=== PATIENT | female | born 1965 | race Caucasian/White ===

== ENCOUNTER 2023-12-18 10:24 | Outpatient (AMB) | payer BC, SELFPAY ==
--- NOTE | 2023-12-18 10:30 | A.OFFVIS_ITS ---
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 The patient is a 58 year woman known obstructive sleep apnea. She has had a frozen sleep apnea for about 20 years. She is going to CPAP for that long. The CPAP therapy has been affecting beneficial. She has been using nasal pillows. She does keep her mouth closed and she does respond well to the therapy. When she does not use her CPAP for what reason she wakes up short of breath because of the apneic episodes. She is working closely with the [employer] company, [employer]. She has had the machine for mouth more than 5 years. She has not looking to replace the machine because she does want have to do with copious at this time. I think that is reasonable. Specially the machines working for her. The patient however has not been able to get any supplies. She has been calling the [employer] company has not been able to get any answers. Most likely need a prescription and we will send 1 today. I also did request the [employer] reach out to the patient for an update as far as where she is at with her supplies. The patient will watch him her m achine. If she gets any warning that the machine is not working appropriately she will call and she may need to get a replacement machine. Otherwise the patient is without any other complaints. [facility] Medical History (Updated 12/18/23 @ 22:25 by Kris Hart MD) DAYAN on CPAP Social History (Updated 12/18/23 @ 10:37 by EDYTA Segura) Patient Tobacco Use Status: Never used Tobacco Review of Systems Const Denies difficulty sleeping and Denies snoring Eyes Reports no additional complaints ENT Denies nasal congestion Card Denies chest pain and Denies palpitations Resp Denies cough, Denies snoring and Denies wheezing GI Reports no additional complaints Musc Reports no additional complaints Skin/Breast Denies rash Endo Denies palpitations Aller/Immun Denies wheezing Physical Exam Vital Signs: Last Vital Signs Pulse 60 12/18/23 10:32 BP 124/70 12/18/23 10:32 Pulse Ox 97 12/18/23 10:32 Oxygen Delivery Method Room Air 12/18/23 10:32 BMI result Body Mass Index 37.7 Const General: comfortable HEENT Head: Yes normocephalic Neck Neck: Yes supple Chest Chest palpation & inspection: normal inspection of the chest Resp Effort & Inspection: normal respiratory effort Auscultation: clear to auscultation bilaterally Cardio Heart sounds: S1 normal heart sound present and S2 normal heart sound present GI Palpation (GI): Soft to palpation Skin General skin exam: no rashes or lesions noted Extrem General: Yes no clubbing, cyanosis or edema Assessment & Plan Assessment & Plan (1) DAYAN on CPAP: Code(s): G47.33 - Obstructive sleep apnea (adult) (pediatric) Category: Medical Plan Continue APAP, needs to get supplies from her DME, JL May need to have a replacemnt APAP if the current APAP start malfuctioning F/U 1 year Coding Level of Care Code Est Pt Level 3 (83696) Diagnoses DAYAN on CPAP G47.33 Time Spent (min) 16
[2023-12-18 10:32] VITALS: BP 124/70; PULSE 60; O2SAT 97; BMI 37.7
== END 2023-12-18 10:54 | disposition home or self-care (01) ==
PROVIDERS: PCP Internal Medicine; Referring Provider Internal Medicine; Visit Provider Hospitalist
DX: G47.33 Obstructive sleep apnea (adult) (pediatric) (principal)
CPT/HCPCS: 99213

== ENCOUNTER → 2023-12-18 10:24 | Outpatient (BNVA) | payer BC, SELFPAY | PROVIDERS: PCP Internal Medicine; Visit Provider Hospitalist ==

== ENCOUNTER 2025-01-18 15:21 | Outpatient (AMB) | payer BC, SELFPAY ==
[2025-01-18 15:23] VITALS: BP 130/72; PULSE 82; O2SAT 96; BMI 42.1
--- NOTE | 2025-01-18 15:23 | A.OFFVIS_ITS ---
Vital Signs 01/18/25 15:23 Height 5 ft 2.5 in Weight 233 lb 11.04 oz BMI 42.1 BP 130/72 Blood Pressure Location Lt brachial Position Sitting Pulse 82 Pulse Source Pulse Oximeter Pulse Oximetry (%) 96 Oxygen Delivery Method Room Air Intake Visit Reasons: Cough Teletype Technician Required: No Accompanied by: Self / Same As Patient Allergies No Known Allergies (No Known Allergies*) Allergy (Verified 01/18/25 15:27) HPI Comments Details: 12/18/2023 the patient is here for a pulmonary follow-up visit. The patient is a 58 year woman known obstructive sleep apnea. She has had a frozen sleep apnea for about 20 years. She is going to CPAP for that long. The CPAP therapy has b een affecting beneficial. She has been using nasal pillows. She does keep her mouth closed and she does respond well to the therapy. When she does not use her CPAP for what reason she wakes up short of breath because of the apneic episodes. She is working closely with the [email or web address] company, [employer]. She has had the machine for mouth more than 5 years. She has not looking to replace the machine because she does want have to do with copious at this time. I think that is reasonable. Specially the machines working for her. The patient however has not been able to get any supplies. She has been calling the [email or web address] company has not been able to get any answers. Most likely need a prescription and we will send 1 today. I also did request the [employer] reach out to the patient for an update as far as where she is at with her supplies. The patient will watch him her machine. If she gets any warning that the machine is not working appropriately she will call and she may need to get a replacement machine. Otherwise the patient is without any other complaints. 01/18/2025 the patient is here for pulmonary follow-up visit. Overall she is doing very well. She continues uses CPAP every night. CPAP therapy has been affecting beneficial. She does use a nasal pillows. She did bring her machine and we did download the machine. His AHI is down to 0.5. Average pressure is 14.9. Current settings are 10-18. I did increase her lower setting to 12 cm since she is having some issues with the machine not being too strong initially. The patient otherwise is without any complaints. She is thinking about switching over to a fullface mask. But right now she is doing well with the nasal pillows and then will continue that for now. If she does change her mind she can always call me and I can send a script out to her DME company for fullface mask. Maybe an F40. The patient denies any other respiratory complaints. Will follow-up in a year's time. [facility] Medical History (Updated 12/18/23 @ 22:25 by Kris Hart MD) DAYAN on CPAP Social History Patient Tobacco Use Status: Never used Tobacco Review of Systems Const Denies difficulty sleeping and Denies snoring Eyes Reports no additional complaints ENT Denies nasal congestion Card Denies chest pain and Denies palpitations Resp Denies cough, Denies snoring and Denies wheezing GI Reports no additional complaints Musc Reports no additional complaints Skin/Breast Denies rash Endo Denies palpitations Aller/Immun Denies wheezing Physical Exam Vital Signs: Last Vital Signs Pulse 82 01/18/25 15:23 BP 130/72 01/18/25 15:23 Pulse Ox 96 01/18/25 15:23 Oxygen Delivery Method Room Air 01/18/25 15:23 BMI result Body Mass Index 42.1 Const General: comfortable HEENT Head: Yes normocephalic Neck Neck: Yes supple Chest Chest palpation & inspection: normal inspection of the chest Resp Effort & Inspection: normal respiratory effort Auscultation: clear to auscultation bilaterally Cardio Heart sounds: S1 normal heart sound present and S2 normal heart sound present GI Palpation (GI): Soft to palpation Skin General skin exam: no rashes or lesions noted Extrem General: Yes no clubbing, cyanosis or edema Assessment & Plan Assessment & Plan (1) DAYAN on CPAP: Code(s): G47.33 - Obstructive sleep apnea (adult) (pediatric) Category: Medical Plan Continue APAP, needs to get supplies from her DME, JL p10 mask F/U 1 year Coding Level of Care Code Est Pt Level 3 (46642) Diagnoses DAYAN on CPAP G47.33 Time Spent (min) 15
--- OUTSIDE RECORDS SUMMARY | 2025-01-18 15:38 | XMS_ITS | Data Portability ---
Author Organization [facility], Main Office Address [address] [facility] [address] [place] [id number] Care Team Providers Care Campus Coordinator Name Role Phone DAVID BRIONES Director Product BAUTISTA HARDY Insurance Compliance Analyst YAZ ARCHER Orthopedic Surgeon YARITZA LOUIS Centrifugal Drier Operator BRISEYDA MAYBERRY Primary Care Provider YASMEEN PARRA Carding Machine Feeder Assessment No assessment recorded. Plan of Treatment Reminders Order Date Submit Date Provider Last Modified By Organization Details Last Modified Time Details Appointments PE EST 2024 08:15A M BRISEYDA MAYBERRY MD Not available Not available Not available Lab lipid panel, serum 2023 024 [email or web address] [facility], [address] [place], [address], 06/08/2024 12:57:40 BMP, serum or plasma 2023 024 ARELIS [facility], [address], [place], [address], 09/10/2024 06:08:07 CBC w/ auto diff 2023 024 ARELIS [facility], [address], [place], [address], 09/10/2024 06:08:06 TSH, ultra- sensit jason, serum 2023 024 [email or web address] [facility], [address], [place], [address], 06/08/2024 12:57:41 lipid panel, serum 2022 023 ARELIS [facility], [address], [place] [address], [place], [address], 11/06/2022 19:07:38 CBC w/ auto diff 2022 023 ARELIS [facility], [address], [place] [address], [place], [address], 11/06/2022 15:08:26 CMP, serum or plasma 2022 023 ARELIS [facility], [address] [place] [address], [place], [address], 11/06/2022 19:07:37 Referral hand surgeo n referr al - for remova l or draina ge of cyst in the left hand 2023 024 [email or web address] [facility] , [address], [address], [place], [address], 09/08/2024 09:13:39 otolar yngolo gist referr al - vertig o and concer n of emily chew loss evalua te 2021 022 [email or web address] [facility], [address], [address], [place], [address], 12/20/2022 15:02:56 gastro entero logist referr al - Needs colon cancer screen ing 2021 022 Yasmeen Parra MD ([facility]), [address], [address] [address], [place], [address], 07/19/2022 12:16:07 audiol ogist referr al - vertig o possib le hearin g loss 2021 [email or web address] Not available 12/26/2022 15:04:00 hand surgeo n referr al - left hand trigge r finger 2021 022 [email or web address] Yaz Archer MD, [facility], [place], [address], 07/11/2022 10:14:53 Procedures None record ed. Surgeries None record ed. Imaging None record ed. Medication Orders atenol ol 50 mg tablet 2023 024 [facility], [place], [address], 03/09/2024 15:25:58 valsar correia 80 mg tablet 2023 024 [facility], [place], [address], 03/09/2024 15:25:58 Patient TargetsNo targets recorded. Patient Instructions Encounter Date Encounter Id Patient Instructions Last Modified By Organization Details Last Modified Time 12/21/2021 [id number] allergies: care instructions [email or web address] Not available 12/21/2021 10:17:41 managing your allergies: care instructions [email or web address] Not available 12/21/2021 10:17:42 06/29/2022 [id number] learning about colon cancer [email or web address] Not available 06/29/2022 11:44:33 body mass index: care instructions [email or web address] Not available 06/29/2022 11:44:32 learning about healthy weight [email or web address] Not available 06/29/2022 11:44:32 10/11/2022 [id number] well visit, women 50 to 65: care instructions Not available 10/11/2022 10:50:53 03/09/2024 [id number] hearing loss: care instructions [email or web address] Not available 03/11/2024 12:25:42 learning about basal cell skin cancer Not available 03/09/2024 15:25:58 sleep apnea: care instructions Not available 03/09/2024 15:25:58 starting a weight loss plan: care instructions Not available 03/09/2024 18:34:07 Nutrition Referral and Weight Management Follow-up Information Not available 03/09/2024 18:34:07 Reason for Referral Hand Surgeon Referral for Tr igger finger of left hand left hand trigger finger Referring Physician: Carolyne Landa [facility], Encounter Date: 12/21/2021 Carding Machine Feeder Referral for Screening for malignant neoplasm of colon Needs colon cancer screening Referring Physician: Carolyne Landa [facility], Encounter Date: 06/29/2022 Pain Management Physician Referral fo r Vertigo vertigo and concern of hearing loss evaluate Referring Physician: Carolyne Landa [facility], Encounter Date: 06/29/2022 Recreational Assistant Referral for Hea ring difficulty vertigo possible hearing loss Referring Physician: Carolyne Landa [facility], Encounter Date: 06/29/2022 Hand Surgeon Referral for Ga nglion cyst of left hand for removal or drainage of cyst in the left hand Referring Physician: Briseyda Mayberry [facility], Encounter Date: 03/09/2024 Results Created Date Observation Date Name Description Value Unit Range Abnormal Flag Note LastModifiedBy Organization Detail LastModifiedTime 11/07/1911/06/2022 BASIC METAB OLIC PANEL results Jorge becki order cance lled via inter face Not Available [facility] (Centralized Electronic Ordering - All Locations) Patient Can Go To The Location Of Their Choice, [id number] 11/06/2022 09:37:01 11/07/1911/06/2022 COMPL ETE CBC WITH DIFF WBC 6.8 K/mm3 (4.0-1 1.0) Not Available [facility] (Centralized Electronic Ordering - All Locations) Patient Can Go To The Location Of Their Choice, [id number] 11/06/2022 15:08:11/07/1911/06/2022 COMPL ETE CBC WITH DIFF RBC 4.50 M/mm3 (4.20- 5.40) Not Available [facility] (Centralized Electronic Ordering - All Locations) Patient Can Go To The Location Of Their Choice, 11/06/2022 15:08:11/07/1911/06/2022 COMPL ETE CBC WITH DIFF HGB 14.4 gm/dL (11.7- 15.5) Not Available [facility] (Centralized Electronic Ordering - All Locations) Patient Can Go To The Location Of Their Choice, 11/06/2022 15:08:11/07/1911/06/2022 COMPL ETE CBC WITH DIFF HCT 42.7 % (35.7- 45.8) Not Available [facility] (Centralized Electronic Ordering - All Locations) Patient Can Go To The Location Of Their Choice, 11/06/2022 15:08:11/07/1911/06/2022 COMPL ETE CBC WITH DIFF MCV 94.9 fL (80.0- 100.0) Not Available [facility] (Centralized Electronic Ordering - All Locations) Patient Can Go To The Location Of Their Choice, 11/06/2022 15:08:11/07/1911/06/2022 COMPL ETE CBC WITH DIFF MCH 32.0 pg (27.0- 34.0) Not Available [facility] (Centralized Electronic Ordering - All Locations) Patient Can Go To The Location Of Their Choice, 11/06/2022 15:08:11/07/1911/06/2022 COMPL ETE CBC WITH DIFF MCHC 33.7 g/dL (33.0- 37.0) Not Available [facility] (Centralized Electronic Ordering - All Locations) Patient Can Go To The Location Of Their Choice, 11/06/2022 15:08:11/07/1911/06/2022 COMPL ETE CBC WITH DIFF plt 227 K/mm3 (150-4 60) Not Available [facility] (Centralized Electronic Ordering - All Locations) Patient Can Go To The Location Of Their Choice, 11/06/2022 15:08:11/07/1911/06/2022 COMPL ETE CBC WITH DIFF RDW-SD 42.3 fL (<47.0 ) Not Available [facility] (Centralized Electronic Ordering - All Locations) Patient Can Go To The Location Of Their Choice, 11/06/2022 15:08:11/07/1911/06/2022 COMPL ETE CBC WITH DIFF MPV 9.9 fL (9.4-1 2.4) Not Available [facility] (Centralized Electronic Ordering - All Locations) Patient Can Go To The Location Of Their Choice, 11/06/2022 15:08:11/07/1911/06/2022 COMPL ETE CBC WITH DIFF automated NRBC 0.0 #/100 _WBC' s Not Available [facility] (Centralized Electronic Ordering - All Locations) Patient Can Go To The Location Of Their Choice, 11/06/2022 15:08:11/07/1911/06/2022 COMPL ETE CBC WITH DIFF abs. NRBC 0.0 K/mm3 Not Available [facility] (Centralized Electronic Ordering - All Locations) Patient Can Go To The Location Of Their Choice, 11/06/2022 15:08:11/07/1911/06/2022 COMPL ETE CBC WITH DIFF neut # 4.4 K/mm3 (1.3-7 .0) Not Available [facility] (Centralized Electronic Ordering - All Locations) Patient Can Go To The Location Of Their Choice, 11/06/2022 15:08:11/07/1911/06/2022 COMPL ETE CBC WITH DIFF lymph # 1.6 K/mm3 (0.8-3 .1) Not Available [facility] ([facility] Electronic Ordering - All Locations) Patient Can Go To The Location Of Their Choice, 11/06/2022 15:08:11/07/1911/06/2022 COMPL ETE CBC WITH DIFF mono# 0.5 K/mm3 (0.4-0 .9) Not Available [facility] ([facility] Ordering - All Locations) Patient Can Go To The Location Of Their Choice, 11/06/2022 15:08:11/07/1911/06/2022 COMPL ETE CBC WITH DIFF eo # 0.2 K/mm3 (0.0-0 .4) Not Available [facility] ([facility] Ordering - All Locations) Patient Can Go To The Location Of Their Choice, 11/06/2022 15:08:11/07/1911/06/2022 COMPL ETE CBC WITH DIFF baso # 0.0 K/mm3 (0.0-0 .1) Not Available [facility] ([facility] Ordering - All Locations) Patient Can Go To The Location Of Their Choice, 11/06/2022 15:08:11/07/1911/06/2022 COMPL ETE CBC WITH DIFF abs. imm gran 0.0 K/mm3 Not Available [facility] ([facility] Order[facility] - All Locations) Patient Can Go To The Location Of Their Choice, 11/06/2022 15:08:11/07/1911/06/2022 COMPL ETE CBC WITH DIFF neut 65.3 % (44-76 ) Not Available [facility] ([facility] Electronic Ordering - All Locations) Patient Can Go To The Location Of Their Choice, 11/06/2022 15:08:11/07/1911/06/2022 COMPL ETE CBC WITH DIFF lymph 23.9 % (15-43 ) Not Available [facility] (Central[facility] Electronic Ordering - All Locations) Patient Can Go To The Location Of Their Choice, 11/06/2022 15:08:11/07/1911/06/2022 COMPL ETE CBC WITH DIFF monocyte 7.3 % (4.5-1 0.5) Not Available [facility] ([facility]ized [facility] Ordering - All Locations) Patient Can Go To The Location Of Their Choice, 11/06/2022 15:08:11/07/1911/06/2022 COMPL ETE CBC WITH DIFF eo 2.3 % (0-6) Not Available [facility] ([facility] Ordering - All Locations) Patient Can Go To The Location Of Their Choice, 11/06/2022 15:08:11/07/1911/06/2022 COMPL ETE CBC WITH DIFF baso 0.6 % (0-2) Not Available [facility] ([facility] Ordering - All Locations) Patient Can Go To The Location Of Their Choice, 11/06/2022 15:08:11/07/1911/06/2022 COMPL ETE CBC WITH DIFF imm gran 0.6 % Not Available [facility] ([facility] Ordering - All Locations) Patient Can Go To The Location Of Their Choice, 11/06/2022 15:08:26 11/07/19 23 11/06/2022 COMPR EHENS JASON METAB OLIC PANL glucose 108 mg/dL (70-99 ) high Fasti ng Not Available [facility] ([facility] Ordering - All Locations) Patient Can Go To The Location Of Their Choice, 11/06/2022 19:07:37 11/07/19 23 11/06/2022 COMPR EHENS JASON METAB OLIC PANL BUN 10 mg/dL (6-20) Not Available [facility] ([facility] Ordering - All Locations) Patient Can Go To The Location Of Their Choice, 11/06/2022 19:07:37 11/07/1911/06/2022 COMPR EHENS JASON METAB OLIC PANL creatinine 0.8 mg/dL (0.5-1 .0) Not Available [facility] ([facility] Ordering - All Locations) Patient Can Go To The Location Of Their Choice, 11/06/2022 19:07:37 11/07/1911/06/2022 COMPR EHENS JASON METAB OLIC PANL sodium 144 mmol/ L (133-1 45) Not Available [facility] ([facility] Ordering - All Locations) Patient Can Go To The Location Of Their Choice, 11/06/2022 19:07:37 11/07/1911/06/2022 COMPR EHENS JASON METAB OLIC PANL potassium 5.1 mmol/ L (3.6-5 .2) Not Available [facility] ([facility] Ordering - All Locations) Patient Can Go To The Location Of Their Choice, 11/06/2022 19:07:37 11/07/1911/06/2022 COMPR EHENS JASON METAB OLIC PANL chloride 105 mmol/ L (98-10 7) Not Available [facility] ([facility] Ordering - All Locations) Patient Can Go To The Location Of Their Choice, 11/06/2022 19:07:37 11/07/19 23 11/06/2022 COMPR EHENS JASON METAB OLIC PANL bicarbonate 29 mmol/ L (22-29 ) Not Available [facility] ([facility] Ordering - All Locations) Patient Can Go To The Location Of Their Choice, 11/06/2022 19:07:37 11/07/1911/06/2022 COMPR EHENS JASON METAB OLIC PANL anion gap 10 (4-17) Not Available [facility] ([facility] Ordering - All Locations) Patient Can Go To The Location Of Their Choice, 11/06/2022 19:07:37 11/07/1911/06/2022 COMPR EHENS JASON METAB OLIC PANL albumin 4.8 gm/dL (3.4-4 .8) Not Available [facility] ([facility] Ordering - All Locations) Patient Can Go To The Location Of Their Choice, 11/06/2022 19:07:37 11/07/1911/06/2022 COMPR EHENS JASON METAB OLIC PANL calcium 10.0 mg/dL (8.6-1 0.5) Not Available [facility] ([facility] Ordering - All Locations) Patient Can Go To The Location Of Their Choice, 11/06/2022 19:07:37 11/07/1911/06/2022 COMPR EHENS JASON METAB OLIC PANL bilirubin,to chuck 0.4 mg/dL (0-1.2 ) Not Available [facility] ([facility] Ordering - All Locations) Patient Can Go To The Location Of Their Choice, 11/06/2022 19:07:37 11/07/1911/06/2022 COMPR EHENS JASON METAB OLIC PANL total protein 7.1 gm/dL (6.2-8 .2) Not Available [facility] ([facility] Ordering - All Locations) Patient Can Go To The Location Of Their Choice, 11/06/2022 19:07:37 11/07/1911/06/2022 COMPR EHENS JASON METAB OLIC PANL Ag ratio 2.1 Not Available [facility] ([facility] Ordering - All Locations) Patient Can Go To The Location Of Their Choice, 11/06/2022 19:07:37 11/07/1911/06/2022 COMPR EHENS JASON METAB OLIC PANL AST 15 U/L (0-32) Not Available [facility] ([facility] Ordering - All Locations) Patient Can Go To The Location Of Their Choice, 11/06/2022 19:07:37 11/07/1911/06/2022 COMPR EHENS JASON METAB OLIC PANL alk phos 62 U/L (35-10 4) Not Available [facility] ([facility] Ordering - All Locations) Patient Can Go To The Location Of Their Choice, 11/06/2022 19:07:37 11/07/1911/06/2022 COMPR EHENS JASON METAB OLIC PANL ALT 14 U/L (0-33) Not Available [facility] ([facility] Ordering - All Locations) Patient Can Go To The Location Of Their Choice, 11/06/2022 19:07:37 11/07/1911/06/2022 COMPR EHENS JASON METAB OLIC PANL estimated GFR creatinine 87 mL/mi n/1.7 3_M2 Creat inine based estim ated glome rular filtr ation (eGFR ) in adult s is calcu lated using the Natio nal Kidne y Found ation recom yuan d 2020 CKD-E PI equat ion. Estim ates GFR from serum creat inine , age and sex. Not Available [facility] ([facility] Ordering - All Locations) Patient Can Go To The Location Of Their Choice, 11/06/2022 19:07:37 11/07/1911/06/2022 LIPID PANEL cholesterol, total 228 mg/dL (<200) high Not Available [facility] ([facility] Order[facility] - All Locations) Patient Can Go To The Location Of Their Choice, 11/06/2022 19:07:38 11/07/1911/06/2022 LIPID PANEL triglyceride 135 mg/dL (<150) Fasti ng Not Available [facility] ([facility] Ordering - All Locations) Patient Can Go To The Location Of Their Choice, 11/06/2022 19:07:38 11/07/1911/06/2022 LIPID PANEL HDL chol 65 mg/dL (>39) Not Available [facility] ([facility] Ordering - All Locations) Patient Can Go To The Location Of Their Choice, 11/06/2022 19:07:38 11/07/19 23 11/06/2022 LIPID PANEL LDL cholesterol, calculated 136 mg/dL (0-130 ) high Not Available [facility] ([facility] Ordering - All Locations) Patient Can Go To The Location Of Their Choice, 11/06/2022 19:07:38 11/07/19 23 11/06/2022 LIPID PANEL non HDL cholesterol (calc) 163 mg/dL (<160) high Not Available [facility] ([facility] Order[facility] - All Locations) Patient Can Go To The Location Of Their Choice, 11/06/2022 19:07:38 11/07/19 23 11/07/2022 HEMOG LOBIN A1C hemoglobin A1C 5.7 % (4.0-5 .6) high MONIT ORING : In known diabe tic patie nts, hemog lobin A1c targe ts shoul d be discu ssed with healt h care provi daniel. DIAGN OSTIC USE: The Ameri can Diabe m[place] Assoc iatio n (ADA) and the World [facility]oples Hospital[facility] Organ izati on (WHO) recom mend the use of HbA1c to diagn ose diabe mendoza using a thres hold of 6.5%. Patie nts who have an HbA1c betwe en 5.7% and 6.4% are consi dered at incre ased risk for devel oping diabe mendoza in the futur e. CAUTI ON: False ly low HbA1c resul ts may be obser ashlee in patie nts with hemol ytic anemi a, homoz ygous forms of abnor mal hemog lobin (e.g. SS, CC, SC), pregn escobar, recen t blood loss or hemog lobin F great er than 7%. Fruct osami ne may be used as an alter silvia test in these cases . REFER ENCE: ADA: Stand ards of Medic al Care in [place] m[place] 2019, The Journ al of Clini jessica and Appli ed Resea [facility] and Educa tion Volum e 43, Suppl ement 1 Not Available [facility] ([facility]ized Electronic Ordering - All Locations) Patient Can Go To The Location Of Their Choice, 11/07/2022 12:36:20 09/09/19 25 09/09/2024 CBC WITH DIFFE RENTI AL/PL ATELE T WBC 6.6 x10e3 /uL 3.4-10 .8 normal Not Available [facility] ([facility]) [address] [place], [address], 09/10/2024 06:08:06 09/09/19 25 09/09/2024 CBC WITH DIFFE RENTI AL/PL ATELE T RBC 4.48 x10e6 /uL 3.77-5 .28 normal Not Available [facility] ([facility]) [address] [place], [address], 09/10/2024 06:08:06 09/09/19 25 09/09/2024 CBC WITH DIFFE RENTI AL/PL ATELE T hemoglobin 14.6 g/dL 11.1-1 5.9 normal Not Available [facility] ([facility]) [address] [place], [address], 09/10/2024 06:08:06 09/09/19 25 09/09/2024 CBC WITH DIFFE RENTI AL/PL ATELE T hematocrit 42.4 % 34.0-4 6.6 normal Not Available [facility] ([facility]) [address] [place], [address], 09/10/2024 06:08:06 09/09/19 25 09/09/2024 CBC WITH DIFFE RENTI AL/PL ATELE T MCV 95 fL 79-97 normal Not Available [facility] ([facility]) [address] [place], [address], 09/10/2024 06:08:06 09/09/19 25 09/09/2024 CBC WITH DIFFE RENTI AL/PL ATELE T MCH 32.6 pg 26.6-3 3.0 normal Not Available [facility] ([facility]) [address] [place], [address], 09/10/2024 06:08:06 09/09/19 25 09/09/2024 CBC WITH DIFFE RENTI AL/PL ATELE T MCHC 34.4 g/dL 31.5-3 5.7 normal Not Available [facility] ([facility]) [address] [place], [address], 09/10/2024 06:08:06 09/09/19 25 09/09/2024 CBC WITH DIFFE RENTI AL/PL ATELE T RDW 12.4 % 11.7-1 5.4 Not Available [facility] ([facility]) [address] [facility], [place], [address], 09/10/2024 06:08:06 09/09/19 25 09/09/2024 CBC WITH DIFFE RENTI AL/PL ATELE T platelets 273 x10e3 /uL 150-45 0 normal Not Available [facility] ([facility]) [address] [place], [address], 09/10/2024 06:08:06 09/09/19 25 09/09/2024 CBC WITH DIFFE RENTI AL/PL ATELE T neutrophils 55 % not estab. normal Not Available [facility] ([facility]) [address] [facility], [place], [address], 09/10/2024 06:08:06 09/09/19 25 09/09/2024 CBC WITH DIFFE RENTI AL/PL ATELE T lymphs 32 % not estab. normal Not Available [facility] ([facility]) [address] [place], [address], 09/10/2024 06:08:06 09/09/19 25 09/09/2024 CBC WITH DIFFE RENTI AL/PL ATELE T monocytes 7 % not estab. normal Not Available [facility] ([facility]) [address] [place], [address], 09/10/2024 06:08:06 09/09/19 25 09/09/2024 CBC WITH DIFFE RENTI AL/PL ATELE T eos 3 % not estab. normal Not Available [facility] ([facility]) [address] [place], [address], 09/10/2024 06:08:06 09/09/19 25 09/09/2024 CBC WITH DIFFE RENTI AL/PL ATELE T basos 1 % not estab. normal Not Available [facility] ([facility]) [address] [facility], [place], [address], 09/10/2024 06:08:06 09/09/19 25 09/09/2024 CBC WITH DIFFE RENTI AL/PL ATELE T immature cells DEAF/HARD OF HEARING SPECIALIST Not Available [facility] ([facility]) [address] [place], [address], 09/10/2024 06:08:06 09/09/19 25 09/09/2024 CBC WITH DIFFE RENTI AL/PL ATELE T neutrophils (absolute) 3.7 x10e3 /uL 1.4-7. 0 normal Not Available [facility] ([facility]) [address] [place], [address], 09/10/2024 06:08:06 09/09/19 25 09/09/2024 CBC WITH DIFFE RENTI AL/PL ATELE T lymphs (absolute) 2.1 x10e3 /uL 0.7-3. 1 normal Not Available [facility] ([facility]) [address] [place], [address], 09/10/2024 06:08:06 09/09/19 25 09/09/2024 CBC WITH DIFFE RENTI AL/PL ATELE T monocytes(ab solute) 0.5 x10e3 /uL 0.1-0. 9 normal Not Available [facility] ([facility]) [address] [place], [address], 09/10/2024 06:08:06 09/09/19 25 09/09/2024 CBC WITH DIFFE RENTI AL/PL ATELE T eos (absolute) 0.2 x10e3 /uL 0.0-0. 4 normal Not Available [facility] ([facility]) [address] [place], [address], 09/10/2024 06:08:06 09/09/19 25 09/09/2024 CBC WITH DIFFE RENTI AL/PL ATELE T baso (absolute) 0.0 x10e3 /uL 0.0-0. 2 normal Not Available [facility] ([facility]) [address] [place], [address], 09/10/2024 06:08:06 09/09/19 25 09/09/2024 CBC WITH DIFFE RENTI AL/PL ATELE T immature granulocytes 2 % not estab. Not Available [facility] ([facility]) [address] [place], [address], 09/10/2024 06:08:06 09/09/19 25 09/09/2024 CBC WITH DIFFE RENTI AL/PL ATELE T immature grans (abs) 0.1 x10e3 /uL 0.0-0. 1 Not Available [facility] ([facility]) [address] [place], [address], 09/10/2024 06:08:06 09/09/19 25 09/09/2024 CBC WITH DIFFE RENTI AL/PL ATELE T NRBC DEAF/HARD OF HEARING SPECIALIST Not Available [facility] ([facility]) [address] [place], [address], 09/10/2024 06:08:06 09/09/19 25 09/09/2024 CBC WITH DIFFE RENTI AL/PL ATELE T hematology comments: DEAF/HARD OF HEARING SPECIALIST Not Available [facility] ([facility]) [address] [place], [address], 09/10/2024 06:08:06 09/09/19 25 09/09/2024 BASIC METAB OLIC PANEL (8) glucose 103 mg/dL 70-99 above high normal Not Available [facility] ([facility]) [address] [place], [address], 09/10/2024 06:08:07 09/09/19 25 09/09/2024 BASIC METAB OLIC PANEL (8) BUN 10 mg/dL 8-27 normal Not Available [facility] ([facility]) [address] [place], [address], 09/10/2024 06:08:07 09/09/19 25 09/09/2024 BASIC METAB OLIC PANEL (8) creatinine 0.87 mg/dL 0.57-1 .00 normal Not Available [facility] ([facility]) [address] [place], [address], 09/10/2024 06:08:07 09/09/19 25 09/09/2024 BASIC METAB OLIC PANEL (8) eGFR 76 mL/mi n/1.7 3 >59 normal Not Available [facility] ([facility]) [address] [place], [address], 09/10/2024 06:08:07 09/09/19 25 09/09/2024 BASIC METAB OLIC PANEL (8) BUN/creatini ne ratio 11 12-28 below low normal Not Available [facility] ([facility]) [address] [place], [address], 09/10/2024 06:08:07 09/09/19 25 09/09/2024 BASIC METAB OLIC PANEL (8) sodium 144 mmol/ L 134-14 4 normal Not Available [facility] ([facility]) [address] [place], [address], 09/10/2024 06:08:07 09/09/19 25 09/09/2024 BASIC METAB OLIC PANEL (8) potassium 4.7 mmol/ L 3.5-5. 2 normal Not Available [facility] ([facility]) [address] [place], [address], 09/10/2024 06:08:07 09/09/19 25 09/09/2024 BASIC METAB OLIC PANEL (8) chloride 105 mmol/ L 96-106 normal Not Available [facility] ([facility]) [address] [place], [address], 09/10/2024 06:08:07 09/09/19 25 09/09/2024 BASIC METAB OLIC PANEL (8) carbon dioxide, total 24 mmol/ L 20-29 normal Not Available [facility] ([facility]) [address] [place], [address], 09/10/2024 06:08:07 09/09/19 25 09/09/2024 BASIC METAB OLIC PANEL (8) calcium 9.7 mg/dL 8.7-10 .3 normal Not Available [facility] ([facility]) [address] [place], [address], 09/10/2024 06:08:07 09/09/19 25 09/09/2024 LIPID PANEL cholesterol, total 223 mg/dL 100-19 9 above high normal Not Available [facility] ([facility]) [address] [place], [address], 09/10/2024 06:08:07 09/09/19 25 09/09/2024 LIPID PANEL triglyceride s 139 mg/dL 0-149 normal Not Available [facility] ([facility]) [address] [place], [address], 09/10/2024 06:08:07 09/09/19 25 09/09/2024 LIPID PANEL HDL cholesterol 66 mg/dL >39 normal Not Available [facility] ([facility]) [address] [place], [address], 09/10/2024 06:08:07 09/09/19 25 09/09/2024 LIPID PANEL VLDL cholesterol jessica 24 mg/dL 5-40 Not Available [facility] ([facility]) [address] [facility], [place], [address], 09/10/2024 06:08:07 09/09/19 25 09/09/2024 LIPID PANEL LDL chol calc ([facility]) 133 mg/dL 0-99 above high normal Not Available [facility] ([facility]) [address] [place], [address], 09/10/2024 06:08:07 09/09/19 25 09/09/2024 LIPID PANEL LDL calc comment: DEAF/HARD OF HEARING SPECIALIST Not Available [facility] ([facility]) [address] [facility], [place], [address], 09/10/2024 06:08:07 09/09/19 25 09/10/2024 TSH RFX ON ABNOR MAL TO FREE T4 TSH 1.150 uIU/m L 0.450- 4.500 normal Not Available [facility] ([facility]) [address] [facility], [place], [address], 09/10/2024 06:08:08 02/06/20 22 02/05/2022 MAMMO , scree beau, digit al, bilat eral PROCED URE: MM Digita l Mammo Screen ing INDICA TION: Screen ing. No known palpab le abnorm alitie s. COMPAR ROGER: Prior mammog toy, most recent ly 01/20/20 21. TECHNI QUE: Full-f ield digita l CC and MLO 3D tomosy nthesi s images of both breast s were acquir ed. Comput er-aid ed detect ion (CAD) was utiliz ed in the interp retati on of this study. DENSIT Y: The breast tissue contai ns scatte red areas of fibrog landul ar densit y. FINDIN GS: No suspic ious masses , suspic ious microc alcifi cation s, or areas of nickie ectura l distor tion are seen in either breast to sugges t malign escobar. IMPRES ELIZABETH: No mammog raphic eviden ce of malign escobar. RECOMM ENDATI ON: Annual mammog raphic screen ing BI-RAD S: 1 (Negat jason) Lay letter mailed to masha fox WSN: [id number] Orderi ng Physic ronny: Annamarie lopez MD, Carolyne Armstrong Dictat ed By: Kimmy Diamond MD Dictat ed Date/T mignon: 4:49 pm Review ed By: Kimmy Diamond MD Signed By: Kimmy Diamond MD Signed Date/T mignon: 4:49 pm Transc ribed By: CSB Transc riptio n Date/T mignon: 4:46 pm Birads : Masha fox Class: Outpat ient [id number] [facility] (Outpt Imaging) [address] [place] [address], [address], 02/07/2022 09:27:54 01/24/20 24 01/24/2024 MAMMO , scree beau, digit al, bilat eral PROCED URE: MM Digita l Mammo Screen ing INDICA TION: Screen ing for breast cancer . No known palpab le abnorm alitie s. COMPAR ROGER: Multip le priors , the most recent 022 TECHNI QUE: Full-f ield digita l CC and MLO 3D tomosy nthesi s images of both breast s were acquir ed. Comput er-aid ed detect ion (CAD) was utiliz ed in the interp retati on of this study. DENSIT Y: The breast tissue is almost entire ly fatty. FINDIN GS: No suspic ious masses , suspic ious microc alcifi cation s, or areas of nickie ectura l distor tion are seen in either breast to sugges t malign escobar. IMPRES ELIZABETH: No mammog raphic eviden ce of malign escobar. RECOMM ENDATI ON: Routin e mammog raphic screen ing BI-RAD S: 1 (Negat jason) Lay letter mailed to masha fox WSN: [id number] Orderi ng Physic ronny: Augusto Mendez Dictat ed By: Kaleigh basnal MD, Yue moeller Dictat ed Date/T mignon: 10:14 am Review ed By: Yue Sofia MD Signed By: Yue Sofia MD Signed Date/T mignon: 10:14 am Transc ribed By: RUBEN Transc riptio n Date/T mignon: 10:07 am Birads : Masha t Class: Outpat ient [id number] [facility] (Outpt Imaging) [address], [place], [address], 01/24/2024 10:17:55 01/24/20 24 01/24/2024 MAMMO , scree beau, digit al, bilat eral No observ ation record ed. [facility] [address] [facility], [place], [address], 01/25/2024 09:05:07 Result Notes Documentation Provider Name and Address Organization Details Recorded Time Mammo, Screening, Digital, Bilateral : PROCEDURE: MM Digital Mammo Screening INDICATION: Screening. No known palpable abnormalities. COMPARISON: Prior mammograms, most recently 01/19/2021. TECHNIQUE: Full-field digital CC and MLO 3D tomosynthesis images of both breasts were acquired. Computer-aided detection (CAD) was utilized in the interpretation of this study. DENSITY: The breast tissue contains scattered areas of fibroglandular density. FINDINGS: No suspicious masses, suspicious microcalcifications, or areas of architectural distortion are seen in either breast to suggest malignancy. IMPRESSION: No mammographic evidence of malignancy. RECOMMENDATION: Annual mammographic screening BI-RADS: 1 (Negative) Lay letter mailed to patient WSN: [id number] Ordering Physician: Carolyne Landa MD Dictated By: Kimmy Dunlap MD Dictated Date/Time: 02/05/22 4:49 pm Reviewed By: Kimmy Dunlap MD Signed By: Kimmy Dunlap MD Signed Date/Time: 02/05/22 4:49 pm Transcribed By: RUBEN Pipeline Controller Date/Time: 02/05/22 4:46 pm Birads: [facility] 09:27:54 Mammo, Screening, Digital, Bilateral : PROCEDURE: MM Digital Mammo Screening INDICATION: Screening for breast cancer. No known palpable abnormalities. COMPARISON: Multiple priors, the most recent 02/05/2022 TECHNIQUE: Full-field digital CC and MLO 3D tomosynthesis images of both breasts were acquired. Computer-aided detection (CAD) was utilized in the interpretation of this study. DENSITY: The breast tissue is almost entirely fatty. FINDINGS: No suspicious masses, suspicious microcalcifications, or areas of architectural distortion are seen in either breast to suggest malignancy. IMPRESSION: No mammographic evidence of malignancy. RECOMMENDATION: Routine mammographic screening BI-RADS: 1 (Negative) Lay letter mailed to patient WSN: [id number] Ordering Physician: Briseyda Mayberry Dictated By: Sp Dangelo MD Dictated Date/Time: 01/24/24 10:14 am Reviewed By: Sp Dangelo MD Signed By: Sp Dangelo MD Signed Date/Time: 01/24/24 10:14 am Transcribed By: RUBEN Pipeline Controller Date/Time: 01/24/24 10:07 am Birads: Patient Class: Outpatient Karina Felder juan [facility] 01/24/2024 10:17:55 Problems Name Problem SNOMED Code Status Onset Date Resolution Date Notes Provider Name and Address Organization Details Recorded Time Clinical finding Completed 201302/07/2017 IMPRESSI ON: PT HAS AN APPT WITH [employer] WITH DR LENNON, HX FO ENDOMETR IAL CELLS ON A PAP IN THE PAST, PT WILL GET A PAP IN THE NEAR FUTURE.; RECORDED 01/28/20 14 8:56AM BY RICHY VINCENT I, OFFICE VISIT KAI Chery [facility] 7 09:09:23 Abscess of peritone um [id number] Completed 201301/21/[address] [facility] 9 14:20:34 Bronchos pasm [id number] Completed 200702/09/2014 IMPRESSI ON: POSTVIRA L SYNDROME , SOME COARSE BREATH SOUNDS, NO EVIDENCE OF PNEUMONI A, TRIAL OD ADVAIR 250/50 IF NOT BETTER WILL START PREDNISO NE; RECORDED 04/12/20 08 8:57AM BY JESSICA OSHEAATI ON/ADDEN DUM Not Available [facility] 4 14:10:31 Acute frontal sinusiti s 05309738 Completed 200702/09/2014 RECORDED 04/12/20 08 8:56AM BY JESSICA OSHEAATI ON/ADDEN DUM Not Available [facility] 4 14:10:31 Acute pharyngi tis 629164045 Completed 200702/09/2014 RECORDED 04/12/20 08 8:56AM BY JESSICA OSHEAATI ON/ADDEN DUM Not Available [facility] 4 14:10:31 Allergic rhinitis 90306329 Completed 200702/09/2014 RECORDED 04/21/20 08 2:30PM BY JESSICA URRUTIAATI ON/ADDEN DUM Not Available [facility] 4 14:10:31 Internal hemorrho ids 73952058 Completed 201301/21/2019 Carolyne martinez [place] [facility] 9 14:20:37 Screenin g for malignan t neoplasm of breast Completed 200702/09/2014 RECORDED 04/12/20 08 8:56AM BY JESSICA OSHEAATI ON/ADDEN DUM Not Available [facility] 4 14:10:31 Cellulit is [id number] Completed 201202/09/2014 IMPRESSI ON: TREAT WITH ABX, CALL AND RETURN IF ANY WORSENIN G OF PAIN; RECORDED 02/17/20 13 10:42AM BY HUGO ARCE MA, JESSICAATI ON/ADDEN DUM Not Available [facility] 4 14:10:31 Neck pain 83527833 Completed 200802/09/2014 IMPRESSI ON: PT STILL WITH NECK STIFFNES S, WILL CONTINUE PT; RECORDED 03/16/20 09 8:43AM BY KAI BAHENA, JESSICAATI ON/ADDEN DUM KAI Chery, [facility] 9 13:52:30 Screenin g for malignan t neoplasm of colon Completed 201302/07/2017 RECORDED 10/08/19 14 3:35PM BY CAROLYNE Reaves MD, OFFICE VISIT KAI Chery, [facility] 7 09:09:12 Screenin g for malignan t neoplasm of colon Completed 201202/09/2014 RECORDED 02/17/20 13 10:41AM BY HUGO ARCE MA, ANNOTATI ON/ADDEN DUM KAI Chery, [facility] 7 09:09:12 Dysuria [id number] Completed 200702/09/2014 RECORDED 04/21/20 08 2:15PM BY HUGO ARCE MA, JESSICAATI ON/ADDEN DUM Not Available [facility] 4 14:10:31 Adult health examinat ion Completed 201302/07/2017 IMPRESSI ON: PT IS OVERDUE FOR A PAP, SHE HAS AN APPT, SHE NEEDS TO DO THIS, HX OF ENDOMETR IAL CELLS, IS EXERCISI NG AND LOSING WEIGHT; RECORDED 10/08/19 14 3:34PM BY CAROLYNE Reaves MD, OFFICE VISIT KAI Chery, [facility] 7 09:09:08 Well child [id number] Completed 201102/09/2014 RECORDED 06/26/20 12 1:48PM BY OSCAR CHERY ON/ADDEN DUM Not Available [facility] 4 14:10:31 Head and neck swelling 411317149 Completed 201202/09/2014 IMPRESSI ON: NOTICED TWO DAYS AGO, R TEMPORAL REGION. LIKELY CYSTIC. CHECK US AND WILL F/U WITH GEN SURG FOR FURTHER EVAL.; RECORDED 02/17/20 13 10:42AM BY HUGO ARCE MA, ANNOTATI ON/ADDEN DUM Not Available [facility] 4 14:10:31 Pure hypercho lesterol emia 801787717 Completed 201202/09/2014 IMPRESSI ON: DUE FOR FASTING; RECORDED 02/17/20 13 10:41AM BY HUGO ARCE MA, ANNOTATI ON/ADDEN DUM Not Available [facility] 4 14:10:31 Glucose level outside referenc e range 532470398 Completed 201302/09/2014 IMPRESSI ON: FASTING SUGAR 128 HERE, W PT MOST LIKELYW ITHE KATINA TYPE 2 DM NEEDING MORE DIET AND EXERCISE CHANGES, ALREADY LOSING WEIGHT, CHECK LAB, SEE PT FOR PE BUT PT KNOWS TO LIMIT WHITE CARBS, SUGAR, EXERICSE AND LOSE WEIGHT; RECORDED 09/23/19 14 12:40PM BY YUMI BARTON MA, ANNOTATI ON/ADDEN DUM Not Available [facility] 4 14:10:32 Essentia l hyperten elizabeth [id number] Completed 201302/03/[address] [facility] 0 15:31:43 Essentia l hyperten elizabeth 41694127 Completed 201202/09/2014 IMPRESSI ON: A BIT UP BUT NERVOUS, CONTINUE WEIGHT LOSS CHECK BP EVERY WEEKA DN BRING IN NUMBERS; RECORDED 02/17/20 13 10:41AM BY HUGO ARCE MA, ANNOTATI ON/ADDEN DUM Carolyne martinez [facility] 0 15:31:43 Hypokale doretha [id number] Completed 201301/21/[address] [facility] 9 14:20:24 Hypokale doretha 11392718 Completed 201202/09/2014 RECORDED 02/17/20 13 10:42AM BY HUGO ARCE MA, ANNOTATI ON/ADDEN DUM Carolyne martinez [facility] 9 14:20:24 Immuniza tion refused Completed 201301/21/[address] [facility] 9 14:20:14 Lateral epicondy litis 722075820 Completed 201302/09/2014 RECORDED 09/23/19 14 12:40PM BY YUMI BARTON MA ANNOTATI ON/ADDEN DUM Carolyne martinez [facility] 9 14:20:12 Low back pain 559783061 Completed 201301/21/[address] [facility] 9 14:20:17 Major depressi on single episode, in partial remissio n 26311554 Active [address] [facility] 0 14:43:53 Malaise and fatigue 807288420 Completed 200702/09/2014 IMPRESSI ON: ON MED FOR DEPRESSI KASH ND IT IS WELL TREATED, CONTINUE ; RECORDED 04/12/20 08 9:49AM BY OSCAR URRUTIA ON/ADDEN DUM Not Available [facility] 4 14:10:32 Administ ration of bacteria l and viral vaccine Completed 201102/09/2014 RECORDED 11/29/19 12 2:51PM BY MICKI MAHMOOD, OFFICE VISIT Not Available [facility] 4 14:10:32 Patient status finding [id number] Completed 201304/26/2016 RECORDED 01/28/20 14 9:06AM BY RICHY VINCENT I, OFFICE VISIT KAI Valdez [facility] 6 14:56:18 Obesity 975331171 Completed 201301/21/[address] [facility] 9 14:20:22 Obstruct jason sleep apnea syndrome 89600448 Active [address] [facility] 8 10:36:02 Organic sleep apnea 269814648 Completed 201302/03/2020 Carolyne martinez [place] [facility] 0 15:31:49 Shoulder joint pain 431420727 Completed 200702/09/2014 RECORDED 04/12/20 08 8:56AM BY KAI SEGURA, JESSICAATI ON/ADDEN DUM Not Available [facility] 4 14:10:33 Pain in limb 41467397 Completed 200802/09/2014 IMPRESSI ON: SOME ARM AND LEG PAIN, NO WEAKNESS , REFER TO [facility]; RECORDED 03/16/20 09 8:43AM BY KAI BAHENA, JESSICAATI ON/ADDEN DUM Not Available [facility] 4 14:10:33 Anal pain 25864736 Completed 201202/09/2014 IMPRESSI ON: TO HELPW ITH SITTING VERY UNCOMFOR TABLE; RECORDED 02/17/20 13 10:42AM BY HUGO ARCE MA, JESSICAATI ON/ADDEN DUM Not Available [facility] 4 14:10:33 Palpitat ions 38864289 Completed 201202/09/2014 IMPRESSI ON: BRIEF, DO NOT SOUND CONCERNI NG, WILL CHECK TSH, LYTES AND EKG, IF NL NO FURTHER WORKUP, LIMIT CAFFEINE , IF ANY SOB, CP OR TOHER SYMPTOMS CALL AND REEVAL; RECORDED 02/17/20 13 10:42AM BY HUGO ARCE MA, JESSICAATI ON/ADDEN DUM Not Available [facility] 4 14:10:33 Skin sensatio n disturba nce 70280608 Completed 201302/09/2014 IMPRESSI ON: OF LE, ABN EMG, HAIVNG SCANS WITH DR YAIDRA DUKES WHO IS WORKING ON CAUSE, UNLIKELY ANYTHING TO DO WITH DM, IF SHE IS PREDIABE TIC IT IS NEW JUDGING FROM PAST LABS; RECORDED 09/23/19 14 12:40PM BY YUMI BARTON MA, ANNOTATI ON/ADDEN DUM Not Available [facility] 4 14:10:33 Eruption [id number] Completed 201102/09/2014 IMPRESSI ON: NONHEALI NG LESION ON CALF SINCE NIKOLAS ACCIDENT , PT TO GET CHECKED AT DERM, SHE CAPRI MAKE APPT; RECORDED 06/26/20 12 1:48PM BY OSCAR CHERY ON/ADDEN DUM Not Available [facility] 4 14:10:33 Influenz a vaccine needed [id number] 06 Completed 201102/09/2014 RECORDED 03/28/20 12 10:20AM BY MICKI MAHMOOD, OFFICE VISIT Not Available [facility] 4 14:10:33 Infectiv e otitis externa 23805453 Completed 201202/09/2014 RECORDED 05/21/20 13 2:29PM BY YUMI BARTON MA, OSCAR ON/ADDEN DUM Not Available [facility] 4 14:10:33 Adult health examinat ion Completed 201102/09/2014 RECORDED 06/26/20 12 1:49PM BY OSCAR CHERY ON/ADDEN DUM KAI Chery, [facility] 7 09:09:08 Pain in thoracic spine 010873621 Completed 201202/09/2014 IMPRESSI ON: CHECK XRAYS COULD BE MUSCULAR ; RECORDED 02/17/20 13 10:41AM BY HUGO ARCE MA, JESSICAATI ON/ADDEN DUM Not Available [facility] 4 14:10:33 Dermatop hytosis of the body Completed 201302/09/2014 RECORDED 09/23/19 14 12:40PM BY YUMI BARTON MA, OSCAR ON/ADDEN DUM Not Available [facility] 4 14:10:33 Abscess of peritone 61274647 Completed 201303/01/2014 RECORDED 01/28/20 14 8:56AM BY OSCAR MONTENEGRO ON/ADDEN DUM Carolyne martinez [facility] 9 14:20:34 Bronchos pasm [id number] Completed 200703/01/2014 IMPRESSI ON: POSTVIRA L SYNDROME , SOME COARSE BREATH SOUNDS, NO EVIDENCE OF PNEUMONI A, TRIAL OD ADVAIR 250/50 IF NOT BETTER WILL START PREDNISO NE; RECORDED 04/12/20 08 8:57AM BY KAI SEGURA, JESSICAATI ON/ADDEN DUM Not Available [facility] 4 06:35:43 Acute frontal sinusiti s 40259790 Completed 200703/01/2014 RECORDED 04/12/20 08 8:56AM BY KAI SEGURA, ANNOTATI ON/ADDEN DUM [facility] Available [facility] 4 06:35:43 Acute pharyngi tis 489165661 Completed 200703/01/2014 RECORDED 04/12/20 08 8:56AM BY KAI SEGURA, ANNOTATI ON/ADDEN DUM Not Available [facility] 4 06:35:43 Allergic rhinitis 72643250 Completed 200703/01/2014 RECORDED 04/21/20 08 2:30PM BY RAHEEM PETTIT, JESSICAATI ON/ADDEN DUM Not Available [facility] 4 06:35:43 Screenin g for malignan t neoplasm of breast Completed 200703/01/2014 RECORDED 04/12/20 08 8:56AM BY KAI SEGURA, ANNOTATI ON/ADDEN DUM Not Available [facility] 4 06:35:43 Cellulit is 173910169 Completed 201203/01/2014 IMPRESSI ON: TREAT WITH ABX, CALL AND RETURN IF ANY WORSENIN G OF PAIN; RECORDED 02/17/20 13 10:42AM BY HUGO ARCE MA, ANNOTATI ON/ADDEN DUM Not Available [facility] 4 06:35:43 Neck pain 93861142 Completed 200803/01/2014 IMPRESSI ON: PT STILL WITH NECK STIFFNES S, WILL CONTINUE PT; RECORDED 03/16/20 09 8:43AM BY KAI BAHENA, ANNOTATI ON/ADDEN DUM KAI Chery, [facility] 9 13:52:30 Screenin g for malignan t neoplasm of colon Completed 201303/01/2014 RECORDED 01/28/20 14 8:56AM BY JESSICA MONTENEGROATI ON/ADDEN DUM KAI Chery, [facility] 7 09:09:12 Dysuria [id number] Completed 200703/01/2014 RECORDED 04/21/20 08 2:15PM BY HUGO ARCE MA, OSCAR ON/ADDEN DUM Not Available [facility] 4 06:35:43 Adult health examinat ion Completed 201303/01/2014 IMPRESSI ON: PT IS OVERDUE FOR A PAP, SHE HAS AN APPT, SHE NEEDS TO DO THIS, HX OF ENDOMETR IAL CELLS, IS EXERCISI NG AND LOSING WEIGHT; RECORDED 01/28/20 14 8:55AM BY OSCAR MONTENEGRO ON/ADDEN DUM KAI Chery, [facility] 7 09:09:08 Well child [id number] Completed 201103/01/2014 RECORDED 06/26/20 12 1:48PM BY OSCAR CHERY ON/ADDEN DUM Not Available [facility] 4 06:35:43 Head and neck swelling 581840300 Completed 201203/01/2014 IMPRESSI ON: NOTICED TWO DAYS AGO, R TEMPORAL REGION. LIKELY CYSTIC. CHECK US AND WILL F/U WITH GEN SURG FOR FURTHER EVAL.; RECORDED 02/17/20 13 10:42AM BY HUGO ARCE MA, ANNOTATI ON/ADDEN DUM Not Available [facility] 4 06:35:43 Pure hypercho lesterol emia 234145434 Completed 201203/01/2014 IMPRESSI ON: DUE FOR FASTING; RECORDED 02/17/20 13 10:41AM BY HUGO ARCE MA, ANNOTATI ON/ADDEN DUM Not Available [facility] 4 06:35:43 Glucose level outside referenc e range 981277213 Completed 201303/01/2014 IMPRESSI ON: FASTING SUGAR 128 HERE, W PT MOST LIKELYW PADMINIE KATINA TYPE 2 DM NEEDING MORE DIET AND EXERCISE CHANGES, ALREADY LOSING WEIGHT, CHECK LAB, SEE PT FOR PE BUT PT KNOWS TO LIMIT WHITE CARBS, SUGAR, EXERICSE AND LOSE WEIGHT; RECORDED 09/23/19 14 12:40PM BY YUMI BARTON MA, JESSICAATI ON/ADDEN DUM Not Available [facility] 4 06:35:43 Lateral epicondy litis 618927697 Completed 201301/21/[address] [facility] 9 14:20:12 Malaise and fatigue 501008348 Completed 200703/01/2014 IMPRESSI ON: ON MED FOR DEPRESSI KASH ND IT IS WELL TREATED, CONTINUE ; RECORDED 04/12/20 08 9:49AM BY OSCAR URRUTIA ON/ADDEN DUM Not Available [facility] 4 06:35:43 Administ ration of bacteria l and viral vaccine Completed 201103/01/2014 RECORDED 11/29/19 12 2:51PM BY MICKI MAHMOOD, OFFICE VISIT Not Available [facility] 4 06:35:43 Obesity 633810423 Completed 201303/01/2014 RECORDED 01/28/20 14 8:56AM BY OSCAR MONTENEGRO ON/ADDEN DUM Carolyne martinez [facility] 9 14:20:22 Shoulder joint pain 659261543 Completed 200703/01/2014 RECORDED 04/12/20 08 8:56AM BY OSCAR OSHEA ON/ADDEN DUM Not Available [facility] 4 06:35:43 Pain in limb 20862756 Completed 200803/01/2014 IMPRESSI ON: SOME ARM AND LEG PAIN, NO WEAKNESS , REFER TO [facility]; RECORDED 03/16/20 09 8:43AM BY JESSICA ADAMEATI ON/ADDEN DUM Not Available [facility] 4 06:35:43 Anal pain 12195463 Completed 201203/01/2014 IMPRESSI ON: TO HELPW ITH SITTING VERY UNCOMFOR TABLE; RECORDED 02/17/20 13 10:42AM BY HUGO ARCE MA, OSCAR ON/ADDEN DUM Not Available [facility] 4 06:35:44 Palpitat ions 39538882 Completed 201203/01/2014 IMPRESSI ON: BRIEF, DO NOT SOUND CONCERNI NG, WILL CHECK TSH, LYTES AND EKG, IF NL NO FURTHER WORKUP, LIMIT CAFFEINE , IF ANY SOB, CP OR TOHER SYMPTOMS CALL AND REEVAL; RECORDED 02/17/20 13 10:42AM BY HUGO ARCE MA, OSCAR ON/ADDEN DUM Not Available [facility] 4 06:35:44 Skin sensatio n disturba nce 11266657 Completed 201303/01/2014 IMPRESSI ON: OF LE, ABN EMG, HAIVNG SCANS WITH DR YADIRA DUKES WHO IS WORKING ON CAUSE, UNLIKELY ANYTHING TO DO WITH DM, IF SHE IS PREDIABE TIC IT IS NEW JUDGING FROM PAST LABS; RECORDED 09/23/19 14 12:40PM BY YUMI BARTON MA, OSCAR ON/ADDEN DUM Not Available [facility] 4 06:35:44 Eruption [id number] Completed 201103/01/2014 IMPRESSI ON: NONHEALI NG LESION ON CALF SINCE NIKOLAS ACCIDENT , PT TO GET CHECKED AT DERM, SHE CAPRI MAKE APPT; RECORDED 06/26/20 12 1:48PM BY MICKI MAHMOOD, OSCAR ON/ADDEN DUM Not Available [facility] 4 06:35:44 Influenz a vaccine needed [id number] 06 Completed 201103/01/2014 RECORDED 03/28/20 12 10:20AM BY MICKI MAHMOOD, OFFICE VISIT Not Available [facility] 4 06:35:44 Infectiv e otitis externa 22867327 Completed 201203/01/2014 RECORDED 05/21/20 13 2:29PM BY YUMI BARTON MA, ANNOTATI ON/ADDEN DUM Not Available [facility] 4 06:35:44 Pain in thoracic spine 198329529 Completed 201203/01/2014 IMPRESSI ON: CHECK XRAYS COULD BE MUSCULAR ; RECORDED 02/17/20 13 10:41AM BY HUGO ARCE MA, ANNOTATI ON/ADDEN DUM Not Available [facility] 4 06:35:44 Dermatop hytosis of the body Completed 201303/01/2014 RECORDED 09/23/19 14 12:40PM BY YUMI BARTON MA, ANNOTATI ON/ADDEN DUM Not Available [facility] 4 06:35:44 Acute sinusiti s 28188174 Completed 02/07/[address] [facility] 7 09:09:04 Neck pain 94494148 Completed 01/21/[address] [facility] 9 13:52:30 Depressi ve disorder 54195809 Completed 02/07/[address] [facility] 7 09:09:40 Pain of joint of foot 866314171 Completed 02/07/[address] [facility] 7 09:09:19 Foot pain 03199430 Completed 02/07/[address] [facility] 7 09:09:29 Decrease d hearing 045728928 Active Lola Money juan [facility] 0 14:43:53 Hypercho lesterol emia 29236084 Completed 01/21/[address] [facility] 9 14:20:09 Muscle pain 46194903 Completed 02/07/[address] [facility] 7 09:09:35 Pain of joint 49320815 Completed 02/07/2017 KAI Chery, [facility] 7 09:09:32 Lesion of conjunct cortez 68795996836 9106 Completed 01/21/2019 Carolyne Glacristian-Di yasmin juan [facility] 9 14:20:02 History of divertic ulitis 78161928670 9100 Active [address] [facility] 0 14:43:53 Idiopath ic chronic neuropat hy 313941588 Active [facility] 0 14:43:53 Hyperten sive disorder 13198033 Active [facility] 0 14:43:53 Abscess 439868194 Completed 02/03/2020 Carolyne Mccloudcristian-Haleigh borgeso juan [facility] 0 15:31:22 Hashimot o thyroidi tis 94223546 Active Lolabreanna Valentin [facility] 0 14:43:53 Sleep apnea 47319151 Completed 02/03/[address] [facility] 0 15:31:53 Epidermo id cyst 656272641 Completed 10/11/2022 BRISEYDA MAYBERRY MD [address] [address], [place], [address] , [facility] 3 15:57:19 Well adult 077600752 Completed 02/03/2020 Carolynenathaniel Quezada-Haleigh dexteryasmin juan [facility] 0 15:31:56 Problem Notes None recorded. Procedures Surgical History Date Name Laterality Status Provider Name and Address Organization Details Recorded Time 01/24/20 24 Most Recent Mammogram completed Karina Felder [facility] 01/24/2024 10:17:52 11/30/19 23 Colonoscopy completed Karina Felder [facility] 11/29/2022 15:28:33 02/06/20 22 Mammogram screening completed Ya Gordon [facility] 02/07/2022 09:25:46 01/20/20 20 Date of Last Pap Smear completed Micki Mahmood MA [facility] 02/03/2020 15:13:55 04/15/20 18 Abscess drainage under x-ray completed Micki Mahmood MA [facility] 04/18/2018 14:24:20 11/20/19 18 Date of Last Colonoscopy completed Ruth Beauchampno [facility] 11/27/2017 10:52:24 07/22/19 10 Partial hysterectomy completed Hugo Partida MA [facility] 03/09/2024 15:06:47 Imaging Results None recorded. Procedure Notes None recorded. Medical Equipment None Reported. Allergies Allergen ID Allergen Name Allergen Category Reaction Reaction Severity Criticality Documentation Date Start Date Code Code System Note Provider Name and Address Organization Details Recorded Time 91468 lisinopri l medicatio n cough moderate Not available 10/04/[address] [facility] 2 14:05:39 8759 Product containin g penicilli n (product) medicatio n vomiting Not available Not available 02/02/20142013 [address] [facility] 6 15:08:08 Medications Name Sig Start Date Stop Date Status Note LastModified by Organization Details LastModified Time cyclobenz aprine 10 mg tablet QHS PRN SPASM 05/21 completed RECORDED 05/27/20 08 11:50AM BY CAROLYNE Reaves MD, MEDICATI ON AUTO-BRISSA CTIVATIO N; Not Available Not Available Not Available amoxicill in 500 mg capsule TAKE 1 CAPSULE BY MOUTH TWICE A DAY FOR 7 DAYS active Not Available Not Available No t Available Augmentin 875 mg-125 mg tablet Take 1 tablet every 12 hours by oral route for 14 days. 11/29 completed Not Available Not Available Not Available neomycin- polymyxin -hydrocor t 3.5 mg/mL-10, 000 unit/mL-1 % ear solution FOUR TIMES DAILY 02/23 completed RECORDED 03/16/20 13 10:39AM BY NADEEM WILSON PA-C, MEDICATI ON AUTO-BRISSA CTIVATIO N; Not Available Not Available Not Available potassium chloride ER 10 mEq capsule,e xtended release TAKE 2 CAPSULES BY MOUTH TWICE A DAY active Not Available Not Available No t Available atenolol 100 mg-chlort halidone 25 mg tablet TAKE 1 TABLET DAILY 04/26 completed Not Available Not Available Not Available Klor-Con 10 mEq tablet,ex tended release TID 09/18 completed RECORDED 09/18/19 12 2:34PM BY YUMI BARTON MA, OFFICE VISIT; Not Available Not Available Not Available clindamyc in HCl 300 mg capsule active Not Available Not Available Not Available atenolol 100 mg tablet TAKE 1 TABLET BY MOUTH EVERY DAY 12/11 completed Not Available Not Available Not Available meloxicam 15 mg tablet Take 1 tablet every day by oral route at bedtime for 30 days. 05/14 completed Not Available Not Available Not Available prednison e 20 mg tablet Take 1 tablet every day by oral route for 5 days. 08/14 completed Not Available Not Available Not Available moxifloxa susan 400 mg tablet DAILY 10/30 completed RECORDED 11/04/19 08 2:00PM BY CHIARA Martines NP, MEDICATI ON AUTO-BRISSA CTIVATIO N; Not Available Not Available Not Available atenolol 25 mg tablet QD 2006 active RECORDED 12/03/19 07 2:37PM BY HUGO ARCE MA, ANNOTATI ON/ADDEN DUM; Not Available Not Available Not Available cyanocoba martin (vit B-12) 1,000 mcg tablet Take 1 tablet every day by oral route. 08/11 completed Not Available Not Available Not Available valsartan 80 mg tablet TAKE 1 TABLET DAILY 2024 active Not Available Not Available Not Avai lable metronida zole 500 mg tablet one po THREE TIMES DAILY for 10 days 01/21 completed Not Available Not Available Not Available ciproflox acin 500 mg tablet Take 1 tablet every 12 hours by oral route for 10 days. 01/21 completed Not Available Not Available Not Available sulfameth oxazole 800 mg-trimet hoprim 160 mg tablet TWO TIMES DAILY 04/26 completed Not Available Not Available Not Available aspirin 81 mg tablet,de layed release Take 1 tablet every day by oral route. 08/28 completed Not Available Not Available Not Available oxycodone -acetamin ophen 5 mg-325 mg tablet Q 4HRS PRN PAIN 07/01 completed RECORDED 07/31/19 13 9:27AM BY CAROLYNE Reaves MD, MEDICATI ON AUTO-BRISSA CTIVATIO N; Not Available Not Available Not Available Motrin 800 mg tablet Q 8HRS PRN PAIN 09/18 completed RECORDED 09/18/19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 lower atenolol to 50mg a day and add lisinopril 5mg a day Bradycardia 41310248 R00 .1 nl EKG except for slow rate,w ill lessen beta rashad Administra tion of viral vaccine 90820447 Z23 Body mass index 40+ - severely obese 835857528 E66.01 Z68.41 needs ot get more active and work on weight loss Idiopathic chronic neuropathy 217727809 G60.9 Idiopathic peripheral neuropathy 09641439 G60.9 refill gabapentin [id number] Carolyne hoffman MD Main Office [address] [facility] [address] [facility] [place] [address] 12/21/2021 09:38:44 12/21/2021 10:14:51 Hypertensive disorder 16656590 I10 BP well controlled , continue meds and good response to lowering metoprolol dose Trigger fi nger of right hand 6359423279 0885584 M65.30 refer to ortho Allergic rhinitis 334048 04 J30.9 continue zyrtec and flonase Sinus bradycardia 350536 05 R00.1 resolved with lower metoprolol dose Trigger fi nger of left hand 5199773920 4689427 M65.30 [id number] Carolyne hoffman MD Main Office [address] [facility] [address] [facility] [place] [address] 06/29/2022 11:14:40 06/29/2022 12:04:05 Hypertensive disorder 20089504 I10 BP well controlled , continue meds Screening for malignant neoplasm of colon 610890311 Z12.11 Dr Mckenzie retired; referred to [facility] Body mass index 30+ - obesity 218126609 Z68.30 Vertigo 027262976 R42 with head turning, refer to ENT for hearing evala nd doc, if long wait get hearing test at audiology Hearing difficulty 17396 0000 H91.90 get hearing tested, if asymmetric and has vertigo may need MRI to rule out acoustic neuroma, pt has not been seen for this Obesity 515164271 E66.9 [id number] BRISEYDA MAYBERRY MD Main Office [address] [facility] [address] [facility] [place] [address] 10/11/2022 10:16:50 10/11/2022 11:00:29 Body mass index 40+ - severely obese 518602394 Z68.41 - BMI is 40.5- Cut down on (limit) fast foods, sweets, and processed snack foods. - Limit alcohol intake to no more than 1- 2 drinks a day for men. One drink equals 12 oz of beer, 5 oz of wine, or 1 oz of hard liquor. - Keep a weight loss journal and keep track of the food and portions that you eat. - The exercise that you do- 4 times a week or 150 minutes cumulative of moderate exercise recommende d. Adult heal th examination 537304988 Z00.00 Health Maintenanc e FemaleA) Patient was counseled on healthy diet, exercise and nutrition due to BMI of 40.5. B) ScreeningL ast Mammogram: start at age 50 stop at 74Date: 2R esult: BIRADS-1Ne xt: next is 02/10 Last Pap smear: start at age 21 to age 65Date:Res ults:Next: s/p hysterecto my due to fibroids, no longer needed Last Colonoscop y: start at age 45-75Date: 11/19/2017R esult: diverticul a, 12 mm sesisle polypNext: 5 year, 11/2022 Last DEXA scan:Date: 09/13/2020 Result: normal, next at 64 C) Vaccines:I nfluenza: not this yearTdAP: 09/22/2021 Zoster: orderedPCV 13: due at 55AFPJ10: due at 84JYU78:PC V15:COVID: 11/24/2020 , 12/15/2020 D) Routine blood work orderedE) Updated patient's history RTC in one year for annual exam or sooner if any acute complaints Decreased hearing 097391 001 H91.90 - pt has yet undergone hearing testing for this problem- associated with intermitte nt vertigo and bilateral tinnitus- pt advised to get testing this is the next step, may need an MRI in the future if worsening Lorene thyroiditis 21 103665 E06.3 - pt follows with dena, Dr. Louis - pt not currently on any medication s- gets thyroid levels done with endo therefore not ordered Hypertensive disorder 38 025386 I10 - BP today 118/74- pt is currently on valsartan 80mg and atenolol 50mg, will continue with current regimen Pt counselled on:-Dietar y Approaches to Stop Hypertensi on (DASH) is an eating plan rich in fruits, vegetables , whole grains, fish, poultry, nuts, legumes, and low-fat dairy. These foods are high in rojas nutrients such as potassium, magnesium, calcium, fiber, and protein.-A dvised continued adherence to medication s and low salt diet - extensive counsellin g done regarding dietary habits.-En couraged regular aerobic exercise 30 min for 4-5 x week.-BP monitoring at home advised to bring log at every visit-Side -effects of high BP can cause Stroke, Heart attack and even d/w pt-D/w pt when to call 911 or reach out to Health care provider:> Think you are having a reaction to a medicine you are taking.>Rodriguez ve headaches that keep coming back (recurring ).>Feel dizzy.>Hav e swelling in your ankles.>Rodriguez ve trouble with your vision. 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 Avoid saturated fats that are found primarily in red meat, wade, sausage, and full-fat dairy products. Advised to choose lean proteins like chicken, turkey, and fish when possible. Switch to low-fat or fat-free dairy. And use monounsatu rated fats like olive and canola oil for cooking.- Cut out the trans fats. Trans fats are found in fried food and processed foods, like cookies, crackers, and other snacks.- Eat more omega-3s. Counseled on eating more fish, including salmon, mackerel, mckeon ,nuts and seeds, like walnuts and flax seeds.- Increase your fiber intake. By eating more oats, brain, fruits, beans, and vegetables , can lower your LDL cholestero l levels.- Eat more fruits and veggies. Administra tion of viral vaccine 76618590 Z23 Morbid obesity 528544666 E66.01 - please see BMI problem for more details Idiopathic chronic neuropathy 409243205 G60.9 - will take gabapentin as needed [id number] BRISEYDA MAYBERRY MD Main Office [address] [facility] [address] [place] [address] 03/09/2024 14:46:37 03/09/2024 15:33:44 Adult health examination 428158476 Z00.00 Health Maintenanc e FemaleA) Patient was counseled on healthy diet, exercise and nutrition due to BMI of 39.4. B) ScreeningL ast Mammogram: start at age 50 stop at 74Date: 4Re sult: BIRADS-1Ne xt: next is 02/12 Last Pap smear: s/p hysterecto my due to fibroids, no longer needed Last Colonoscop y: start at age 45-75Date: 11/29/2022R esult: diverticul a, tubular adenomaNex t: 5 year, 11/2026 Last DEXA scan:Date: 09/13/2020 Result: normal, next at 64 C) Vaccines:I nfluenza: not this yearTdAP: 09/22/2021 Zoster: orderedPCV 13: due at 03SXKX31: due at 93RRC41:PC V15:COVID: 11/24/2020 , 12/15/2020 D) Routine blood work orderedE) Updated patient's history RTC in one year for annual exam or sooner if any acute complaints Decreased hearing 694815 001 H91.93 - pt has not yet undergone hearing testing for this problem- associated with intermitte nt vertigo and bilateral tinnitus- normal hearing on exam today, will order audiology at 64 Hypertensive disorder 38 397008 I10 - at goal- BP today 114/70- pt is currently on valsartan 80mg and atenolol 50mg, will continue with current regimen Pt counselled on:-Dietar y Approaches to Stop Hypertensi on (DASH) is an eating plan rich in fruits, vegetables , whole grains, fish, poultry, nuts, legumes, and low-fat dairy. These foods are high in rojas nutrients such as potassium, magnesium, calcium, fiber, and protein.-A dvised continued adherence to medication s and low salt diet - extensive counsellin g done regarding dietary habits.-En couraged regular aerobic exercise 30 min for 4-5 x week.-BP monitoring at home advised to bring log at every visit-Side -effects of high BP can cause Stroke, Heart attack and even d/w pt-D/w pt when to call 911 or reach out to Health care provider:> Think you are having a reaction to a medicine you are taking.>Rodriguez ve headaches that keep coming back (recurring ).>Feel dizzy.>Hav e swelling in your ankles.>Rodriguez ve trouble with your vision. Major depr ession single episode, in partial remission 49129500 F32.4 - PHQ-9: 1- currently in remission- pt not on any medication s Obstructiv e sleep apnea syndrome 76191227 G47.33 - uses CPAP at night Idiopathic chronic neuropathy 036802324 G60.9 - will take gabapentin as needed Fatigue 54173115 R53.83 Z00.00 Hyperlipidemia 92597788 E78.5 Z00.00 FASTING Basal cell carcinoma of skin 089341820 C44.91 - located on the face- pt counselled on sun screen and protective clothing- pt advised to follow-up with derm as she needs a skin check daily Ganglion c yst of left hand 5947388644 87593 M67.442 - mobile ganglion cyst noted on left hand- referred to hand surgery for removal or drainage Vaccine de clined by patient 1777520986 02 Z28.21 Body mass index 30+ - obesity 011543681 E66.9 Z68.39 - BMI of 39.4- Cut down on (limit) fast foods, sweets, and processed snack foods. - Limit alcohol intake to no more than 1- 2 drinks a day for men. One drink equals 12 oz of beer, 5 oz of wine, or 1 oz of hard liquor. - Keep a weight loss journal and keep track of the food and portions that you eat. - The exercise that you do- 4 times a week or 150 minutes cumulative of moderate exercise jacques mccullough [id number] Patrick Hou MD Main Office [address] [facility] [address] [facility] [place] [address] 10/07/2024 13:17:01 10/07/2024 14:03:11 Dysfunction of right eustachian tube 7183201163 800448 H69.91 Advised her to use flonase nasal spray regularly over the next week and to switch her anti-hista mine from loratidine to cetirizine since she may have developed tachyphyla xis. Health Concerns Section Related Observation LastModified by Organization Detai ls LastModified Time None Recorded Concern Status LastModified by Organization Details LastModified Time None Recorded Advance Directives Directive N: Payers Insurance Date Sequence Insurance Name Policy Number Policy Chatman Covered Member ID Chatman Member ID Guarantor Name 10/20/2024 1 [facility] [id number] Kanwal Dumont [id number] Kanwal Dumont Notes Date Note Type Note Provider Name and Address Organization Details Recorded Time 12/21/2021 text/html PT is here for a follow-up of htn, bradycardia and trigger finger. PT's metoprolol dose was lowered to QD from bid last visit and pt feels better, pulse up form 50to 68, no orthostatic symptoms, gets some vertigo when rolls over in bed, has seasonal allergies, on zyrtec ad flonase, and right middle finger with trigger finger, requesting ortho referral Carolyne martniez [facility] 12/21/2021 10:18:38 06/29/2022 text/html PT is here for a follow-up of htn, need for colon cancer screening and vertigo. Pt is thinking her hearing may be abnormal in left ear, has not had haring tested. Hx of intermittent brief bouts of vertigo with head position change. has not seen ENT or had eval. Amy martinez [facility] 07/02/2022 16:19:59 10/11/2022 text/html Kanwalrachell Dumont is a 57 year old F who presented to the clinic for her annual exam. Pt denies any emergency room visits or hospitalizations in the last week. 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 Pt mentions she will get the vertigo intermittently however has not yet follow-up with hearing testing. Associated with the vertigo is bilateral tinnitus. Complaints: none Is not using ASA.OTC/Herbal supplements use: biotin, calcium+vitamin D and magnesium Gynecologic HistoryPatient's last menstrual period, cannot rememberSexually active: yes with husbandContraception: Menopause+/- abnormal paps, pt is insure+ fibroidsDenies cysts, stds Obstetric HistoryGravida: 3Para: 3AB: 0LivinComplications: pt has twins Drug use: never userEtoh use: twice a week will have a seltzertobacco use: never userspf/derm: does not wear, forgets Dental: every 6 monthsEye: every yearDiet: regularActivity: none BRISEYDA MAYBERRY MD [address], [address], [facility] 10/11/2022 15:58:19 03/09/2024 text/html Kanwal Dumont is a 59 year old F who presented to the clinic for her annual exam. Pt denies any emergency room visits or hospitalizations in the last year. 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 Pt mentions she will get the vertigo intermittently however has not yet follow-up with hearing testing. Associated with the vertigo is bilateral tinnitus. Complaints: left hand, has a bump which was noted two months ago, non-painful, has grown very slightly over this time Is not using ASA.OTC/Herbal supplements use: biotin, calcium+vitamin D and magnesium Gynecologic HistoryPatient's last menstrual period, cannot rememberSexually active: yes with husbandContraception: Menopause+/- abnormal paps, pt is insure+ fibroidsDenies cysts, stds Obstetric HistoryGravida: 3Para: 3AB: 0LivinComplications: pt has twins Drug use: never userEtoh use: twice a week will have a seltzertobacco use: never userspf/derm: does not wear, forgets Dental: every 6 monthsEye: has not been in some timeDiet: regular, watching carb intakeActivity: none Amy Manuel martinez, [facility] 03/11/2024 12:25:47 10/07/2024 text/html She has a feelin g of a blocked ear on the right but no pain. Also with some decreased hearing that sounds muffled. She was seen at an urgent care and although her exam was normal she was given a pre-emptive course of amoxicillin which she is completing tonight. She states that she continued to feel blocked on that side. Denies other symptoms such as sinus pain, sore throat or f/c. She has allergic rhinitis and takes OTC loratidine daily. She also has used flonase but hasn't been doing it regularly recently. Patrick Hou MD [address] [address], [place], [address], [facility] 10/07/2024 16:18:43 OBGyn Episode No OBEpisode recorded.
== END 2025-01-18 15:56 | disposition home or self-care (01) ==
LOC: HO.HPS 15:21
PROVIDERS: PCP Internal Medicine; Visit Provider Hospitalist
DX: G47.33 Obstructive sleep apnea (adult) (pediatric) (principal)
CPT/HCPCS: 99213